=== PATIENT | male | born 1960 | race Caucasian/White ===

== ENCOUNTER 2020-01-12 11:24 | Emergency (ER) | payer BC ==
[~2020-01-12] VITALS: Ht 170.2 cm; Wt 97.5 kg
[2020-01-12] MEDS ORDERED: SODIUM CHLORIDE 0.9% 1000ML 1,000 ML IV SCH (12:15)
[2020-01-12] MEDS ORDERED: TRAMADOL HCL 50 MG TAB PO ONE (12:30)
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
--- NOTE | 2020-01-12 12:56 | Diagnostic Imaging Report ---
EXAM: SHOULDER 2+VW LT -HOPD DATE: 01/12/2020 12:34 PM INDICATION: Fall, injury COMPARISON: None available. FINDINGS/IMPRESSION: In this patient with history of remote shoulder reconstruction, prominent osteophytes are noted along the left humeral head and acromion. No radiographically evident acute/displaced fracture is appreciated. The humeral head appears slightly inferior to the glenoid which may be related to positioning. No significant dislocation is appreciated. There is moderate AC joint arthropathy. The surrounding soft tissues are unremarkable without evidence for radiopaque foreign body. The visualized left hemithorax is clear. Signed by: Dr. Usman Irizarry MD on 01/12/2020 12:53 PM
[2020-01-12] MEDS ORDERED: ULTRAM50 MG PO (13:13)
[2020-01-12] MEDS ORDERED: METAXALONE800 MG PO (13:17)
== END 2020-01-12 13:34 | disposition home or self-care (01) ==
LOC: FSED 11:24
DX: M25.512 Pain in left shoulder (principal); S40.012A Contusion of left shoulder, initial encounter; V17.4XXA Pedal cycle driver injured in collision with fixed or stationary object in traffic accident, initial encounter; Y93.55 Activity, bike riding; Y92.488 Other paved roadways as the place of occurrence of the external cause; E11.65 Type 2 diabetes mellitus with hyperglycemia
CPT/HCPCS: 99284

== ENCOUNTER → 2021-01-21 | Day surgery (SDC) | payer BC ==
[~2021-01-21] MED LIST: FENTANYL CITRATE/PF 100MCG/2 ML INJ ONE; JARDIANCE10 MG PO; LIDOCAINE HCL 2% LOCAL INJ 5 ML SDV VIAL INJ ONE; LIPITOR10 MG PO; METAXALONE800 MG PO; METFORMIN HCL500 MG PO; MIDAZOLAM HCL 2 MG/2 ML VIAL ONE; PROPOFOL IV EMULSION 10 MG/ML 20 ML VIAL ONE; ULTRAM50 MG PO; ZESTRIL2.5 MG PO
[2021-01-21 16:57] VITALS: BP 111/76
== END | disposition home or self-care (01) ==
LOC: OR 11:03
PROVIDERS: ATTEND Internal Medicine Gastroenterology
DX: Z12.11 Encounter for screening for malignant neoplasm of colon (principal); D12.8 Benign neoplasm of rectum; K57.30 Diverticulosis of large intestine without perforation or abscess without bleeding; K63.5 Polyp of colon; K64.8 Other hemorrhoids; E11.9 Type 2 diabetes mellitus without complications; I10 Essential (primary) hypertension; Z68.36 Body mass index [BMI] 36.0-36.9, adult; Z01.810 Encounter for preprocedural cardiovascular examination; Z01.812 Encounter for preprocedural laboratory examination; Z20.822 Contact with and (suspected) exposure to COVID-19
CPT/HCPCS: 36415; 45384; 82948; 93005; J2001; J2250; J2704; J3010; U0002